=== PATIENT | male | born 2000 | race Caucasian/White ===

== ENCOUNTER 2022-09-16 18:19 | Emergency (ER) | payer SELFPAY ==
[2022-09-16] MEDS ORDERED: cefTRIAXone 2 GM in Sodium Chloride 0.9% 100 ML IV ONE (19:31)
[2022-09-16] MEDS ORDERED: Sodium Chloride 0.9% 10 ML Syringe FLUSH PRN (19:31)
[2022-09-16 19:51] LABS: BASOPHILS ABSOLUTE AUTO 0.04 K/mm3 (0.01-0.08); BASOPHILS PERCENT AUTO 0.5 % (0.1-1.2); EOSINOPHILS ABSOLUTE AUTO 0.05 K/mm3 (0.04-0.54); EOSINOPHILS PERCENT AUTO 0.7 (0.8-7.0); HEMATOCRIT 43.7 % (40.1-51.0); IMMATURE GRAN ABSOLUTE AUTO 0.02 K/mm3 (0.00-0.10); IMMATURE GRAN PERCENT AUTO 0.3 % (<=1.0); LYMPHOCYTES PERCENT AUTO 27.3 % (21.8-53.1); MEAN CORPUSCULAR HEMOGLOBIN 31.9 pg (25.7-32.2); MEAN CORPUSCULAR HGB CONC 34.3 g/dl (32.2-35.5); MEAN PLATELET VOLUME 10.5 fl (9.4-12.3); MONOCYTES ABSOLUTE AUTO 0.84 K/mm3 (0.30-0.82); MONOCYTES PERCENT AUTO 10.9 % (5.3-12.2); NEUTROPHILS ABSOLUTE AUTO 4.63 K/mm3 (1.78-5.38); NEUTROPHILS PERCENT AUTO 60.3 % (34.0-67.9); PLATELET COUNT,PLT 223 K/mm3 (163-337); WHITE BLOOD CELL COUNT,WBC 7.68 K/mm3 (4.23-9.07)
[2022-09-16 20:12] LABS: A/G RATIO 1.2 (1-2); ALANINE AMINOTRANSFERASE,ALT 28 U/L (16-63); ALBUMIN 4.1 g/dl (3.4-5.0); ALKALINE PHOSPHATASE 57 U/L (46-116); ANION GAP 12.8 (5-15); ASPARTATE AMNIOTRANSFERASE,AST 18 U/L (15-37); BILIRUBIN TOTAL 0.4 mg/dL (0.2-1.0); BLOOD UREA NITROGEN,BUN 20 mg/dL (7-18); BUN/CREATININE RATIO 18.2 (14-18); C-REACTIVE PROTEIN <0.2 mg/dL (<1.0); CALCIUM 9.1 mg/dL (8.5-10.1); CARBON DIOXIDE,CO2 26 mEq/L (21-32); CHLORIDE,CL 103 mEq/L (98-107); CREATININE 1.1 mg/dL (0.7-1.3); EST CRCL DRUG DOSING (CG) 103.55 mL/min; ESTIMATED GFR 96 mL/min (>60); GLUCOSE RANDOM 97 mg/dL (70-99); POTASSIUM,K 3.8 mEq/L (3.5-5.1); PROTEIN TOTAL,TP 7.6 g/dl (6.4-8.2); SODIUM,NA 138 mEq/L (136-145)
== END 2022-09-16 20:50 | disposition home or self-care (01) ==
LOC: JD.ED 18:19
DX: L03.113 Cellulitis of right upper limb (principal)
CPT/HCPCS: 36415; 80053; 85025; 86140; 96365; 99283; 99283-25; J0696; J3490

== ENCOUNTER 2024-10-21 01:10 | Emergency (ER) | payer SELFPAY ==
[2024-10-21] MEDS: Iopamidol 612 MG/ML 100 ML Bottle IVPUSH ONE (02:31)
[2024-10-21] MEDS: Sodium Chloride 0.9% 10 ML Syringe FLUSH PRN (02:31)
[2024-10-21] MEDS: Iopamidol 612 MG/ML 30 ML SDV IV ONE (02:31)
== END 2024-10-21 04:25 | disposition home or self-care (01) ==
LOC: JD.ED 01:10
DX: S22.42XA Multiple fractures of ribs, left side, initial encounter for closed fracture (principal); Z79.899 Other long term (current) drug therapy; Z87.891 Personal history of nicotine dependence; W22.8XXA Striking against or struck by other objects, initial encounter; Y93.89 Activity, other specified
CPT/HCPCS: 71260; 74177; 99284; Q9967; 99283